=== PATIENT | male | born 1965 | race Caucasian/White ===

== ENCOUNTER → 2020-04-11 | Outpatient (CLI) | payer OTHER ==
--- NOTE | 2020-04-12 13:18 | MRI ---
EXAM DESCRIPTION: Cervical Spine: MRI. CLINICAL HISTORY: 55 years Male RADICULOPATHY CERVICAL REGION COMPARISON: MRI scan lumbar spine on the same visit. TECHNIQUE: Multiplanar, high-field MRI, multiple sequences, non-contrast Cervical spine. FINDINGS: C3-C4: Small uncinate spurs bilaterally with mild to moderate bilateral neural foraminal narrowing, more right than left. No disc desiccation and disc space preserved. Canal is patent. C4-C5: Normal signal in the disc with disc space maintained. Trace posterior midline bulge. Small bilateral uncinate spurs. Bilateral mild neural foraminal narrowing. Mild canal narrowing. Minimal arthrosis and hypertrophy of the right facet joint. C5-C6: Moderate endplate reactive changes bilaterally and moderate disc space loss with anterior bulging and anterior endplate spurs abutting the posterior esophagus. Posterior bulge in the midline abutting the cord. Trace retrolisthesis. Bilateral uncinate spurs. Hypertrophy of the posterior ligaments. Mild central canal stenosis. Moderate to severe bilateral neural foraminal narrowing, more on the left C6-C7: Disc desiccation with anterior narrowing and endplate reactive changes with anterior bulging and endplate ridging. Posterior broad-based bulge more to the the left of midline abutting the left C7 nerve. Normal signal in the C2-C3 disc, C7-T1 disc, and T1-2 disc disc with no bulging. Disc spaces preserved. Canal and neural foramina are patent. Facet joints . Spinal alignment minimal kyphosis C4-C6. No cord compression or cord edema. Atlantoaxial joint minimal arthrosis. Base of the cerebellar tonsils is just above the foramen magnum. Paravertebral soft tissues negative.. Vertebral bodies are not compressed at any level. Otherwise normal marrow signal in the remaining vertebral bodies and the posterior elements. IMPRESSION: 1. Spondylosis is advanced at C5-C6 with disc space loss and bulging. Bilateral uncinate spurs and mild central canal stenosis. Bilateral moderate to severe bilateral foraminal narrowing more on the left. 2. Please see above for findings at other levels. Electronically signed by: Juan Miguel Hickey MD 04/12/2020 1:17 PM CDT
--- NOTE | 2020-04-12 13:48 | MRI ---
EXAM DESCRIPTION: Lumbar Spine w/o Contrast : Magnetic Resonance Imaging. CLINICAL HISTORY: RADICULOPATHY LUMBAR REGION COMPARISON: MRI scan cervical spine without contrast on the same visit. TECHNIQUE: Multiplanar, multiple standard sequences, non contrast MRI, lumbar spine. FINDINGS: L5-S1: The disc is well visualized on axial T2 series 501, image 3. Moderate disc space loss mostly posterior. Posterior disc osteophyte complex protruding 5 X 21 mm in the midline and right of midline with partial effacement of the right subarticular recess abutting the descending right S1 nerve. Minimal hypertrophic degenerative changes in the facet joints and posterior flavum ligaments (canal elements), with bilateral pedicle shortening. AP canal diameter 11 mm. Borderline right foraminal stenosis. Moderate to severe left foraminal narrowing. L4-L5: Disc desiccation and minimal disc space loss. 2 mm grade 1 retrolisthesis. Posterior broad-based disc bulge more to the left of midline and in the right almost 4 mm posterior excursion. Hyper intense T2 annular fissure in the posterior margin. Hypertrophic changes in the canal elements with bilateral pedicle shortening. AP canal diameter 11 mm mild bilateral foraminal narrowing more on the left. Bilateral subarticular recess narrowing more on the left. L3-L4: Disc desiccation with disc space maintained. Minimal posterior bulge. Hypertrophic changes in the lateral elements. Bilateral pedicle shortening. AP canal diameter 11 mm. Moderate to severe bilateral foraminal narrowing. L2-L3: Disc spaces maintained with normal disc signal. No posterior bulging. Minimal hypertrophic changes in the canal elements and bilateral pedicle shortening. AP canal diameter 13 mm. Bilateral mild foraminal narrowing. L1-L2: Disc desiccation and minimal disc space loss. Anterior disc bulging with spurs. Posterior broad-based bulge 3 mm. Hypertrophic changes in the canal elements. Bilateral pedicle shortening. AP canal diameter 11 mm. Mild to moderate right foraminal narrowing and mild left foraminal narrowing. L5-S1: Disc desiccation and trace anterolisthesis and posterior midline bulge. Hypertrophic changes in the canal elements more on the left impressing on the posterior lateral thecal sac. Bilateral pedicle shortening. AP canal diameter 12 mm. Bilateral mild foraminal narrowing more on the left. Disc desiccation and spondylosis T11-T12 with right posterior disc osteophyte protrusion narrowing the right foramen and the right canal and abutting the right ventral cord. Degree of canal narrowing difficult to determine with only sagittal images recorded. No scoliosis. Paravertebral soft tissues muscle atrophy.. Distal cord normal signal and caliber. Multiple small circumscribed hyperintense T1 and T2 hemangiomas in the lumbar vertebral bodies Inhomogeneous marrow signal in the remaining vertebral bodies and the posterior elements. Vertebral bodies are not compressed at any level. IMPRESSION: 1. Multiple levels of spondylosis, hypertrophic changes in the posterior flavum ligaments and facet joints and disc desiccation. 2. Broad disc osteophyte protrusion at L5-S1 encroaching on the thecal sac and possibly right L5 and right S1 nerves. 3. 4 mm posterior excursion L4-L5 disc to the left of midline annular fissure. 4. Significant spondylosis to the right of midline at T11-T12 and canal narrowing by disc osteophyte complex. Consider MR thoracic spine if this process is suspected at other levels with or without radiculopathy. Electronically signed by: Juan Miguel Hickey MD 04/12/2020 1:46 PM CDT
== END ==
LOC: MRI 10:46
PROVIDERS: ATTEND Psychiatry & Neurology Neurology
DX: M47.22 Other spondylosis with radiculopathy, cervical region (principal); M48.02 Spinal stenosis, cervical region; M47.26 Other spondylosis with radiculopathy, lumbar region; M51.36 Other intervertebral disc degeneration, lumbar region; M46.96 Unspecified inflammatory spondylopathy, lumbar region; M24.28 Disorder of ligament, vertebrae; M47.894 Other spondylosis, thoracic region; M25.78 Osteophyte, vertebrae